=== PATIENT | female | born 1940 | race Native Hawaiian/Other Pacific Islander ===

== ENCOUNTER 2018-09-25 08:31 | Day surgery (SDC) | payer OTHER | END 2018-09-25 10:55 | disposition home or self-care (01) | LOC: OR 08:31 | PROC: 08RK3JZ Replacement of Left Lens with Synthetic Substitute, Percutaneous Approach (ICD-10-PCS; principal; 2018-09-25) | DX: H25.812 Combined forms of age-related cataract, left eye (principal) | CPT/HCPCS: 66984; V2632 ==

== ENCOUNTER 2018-11-20 07:21 | Day surgery (SDC) | payer OTHER ==
[~2018-11-20] VITALS: Ht 30.5 cm; Wt 0.5 kg
== END 2018-11-20 09:32 | disposition home or self-care (01) ==
LOC: OR 07:21
PROC: 08RJ3JZ Replacement of Right Lens with Synthetic Substitute, Percutaneous Approach (ICD-10-PCS; principal; 2018-11-20)
DX: H25.811 Combined forms of age-related cataract, right eye (principal)
CPT/HCPCS: 66984; J2250; V2632

== ENCOUNTER 2022-07-30 12:32 | Outpatient (CLI) | payer OTHER | END 2022-07-30 22:23 | disposition home or self-care (01) | LOC: CT 12:32 | PROVIDERS: ATTEND Internal Medicine | DX: R06.09 Other forms of dyspnea (principal); Z86.16 Personal history of COVID-19; Z86.711 Personal history of pulmonary embolism; Z09 Encounter for follow-up examination after completed treatment for conditions other than malignant neoplasm | CPT/HCPCS: 36415; 82565; 84520; Q9963 ==